=== PATIENT | female | born 1955 | race Caucasian/White ===

== ENCOUNTER → 2018-07-08 11:19 | Outpatient (CLI) | payer MEDICARE, SELFPAY ==
--- NOTE | 2018-07-08 | DI.CT.S_ITS ---
PROCEDURE: CT CERVICAL SPINE WO CON INDICATIONS: PAIN TECHNIQUE: Noncontrast 3 mm thick sections acquired from the skull base to the T4 level. Sagittal and coronal reformats were then constructed. For radiation dose reduction, the following was used: automated exposure control, adjustment of mA and/or kV according to patient size. COMPARISON: Outside Facility, RG, CT FULL SPINE, 04/26/2018, 23:38. [facility], CT, CT HEAD/BRAIN WO CON, 07/08/2018, 11:25. Outside Facility, RG, XR C-SPINE 4-6V, 04/29/2018, 14:52. [facility], RG, XR C-SPINE 2-3V, 06/24/2018, 12:37. FINDINGS: Image quality: Excellent. Bones: There is a fracture seen of the right arch and the C1 vertebral body, with a gap of up to 1 cm involving the right anterior arch, with downward displacement of the skull base into the fracture cleft, as on series 10 image 39. The posterior arch fracture on the right demonstrates partially bridging bony callus and displacement of 1-2 mm, as on series 6 image 22. No new fractures are seen. No suspicious lytic or blastic lesions are seen. Age-appropriate bony degenerative changes are seen. Soft tissues: Prevertebral soft tissues are normal in thickness. No paravertebral hematomas. No apical pneumothoraces. IMPRESSION: There are fractures of the C1 arch on the right. The fracture involving the anterior right arch is more displaced on the current study than on the prior, with a gap of up to 1 cm. The skull base and invaginates down into the fracture cleft, splaying the fracture fragments. The fracture of the right posterior arch of C1 is slightly more displaced on the current study than on the prior, yet demonstrates partial bony bridging. Dictated by: Basil Rodrigues M.D. on 07/08/2018 at 14:00 Approved by: Basil Rodrigues M.D. on 07/08/2018 at 14:06
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
== END ==
PROVIDERS: Visit Provider Neurological Surgery
DX: S06.5X0D Traumatic subdural hemorrhage without loss of consciousness, subsequent encounter (principal); S12.000D Unspecified displaced fracture of first cervical vertebra, subsequent encounter for fracture with routine healing; M54.2 Cervicalgia
CPT/HCPCS: 70450; 72125

== ENCOUNTER → 2018-08-02 10:16 | Outpatient (CLI) | payer MEDICARE, SELFPAY ==
--- NOTE | 2018-08-02 | DI.CT.S_ITS ---
PROCEDURE: CT CERVICAL SPINE WO CON INDICATIONS: Unspecified displaced fracture of first cervical TECHNIQUE: Noncontrast 3 mm thick sections acquired from the skull base to the T4 level. Sagittal and coronal reformats were then constructed. For radiation dose reduction, the following was used: automated exposure control, adjustment of mA and/or kV according to patient size. COMPARISON: [facility], RG, XR C-SPINE 2-3V, 06/24/2018, 12:37. Outside Facility, RG, XR C-SPINE 4-6V, 04/29/2018, 14:52. Outside Facility, RG, CT FULL SPINE, 04/26/2018, 23:38. [facility], CT, CT HEAD/BRAIN WO CON, 08/02/2018, 11:00. [facility], CT, CT CERVICAL SPINE WO CON, 07/08/2018, 11:25. FINDINGS: Image quality: Excellent. Bones: Fractures are seen of the right aspect of the C1 arch. Along the fracture the posterior arch, there is minimal interval remodeling change, with slight progression of bony bridging. There is a moderately displaced fracture of the right aspect of the C1 arch, which is not significantly changed compared to the prior examination. The right skull base is seen descending into the fracture line itself, splaying the fracture fragments, which is a stable observation. No additional fractures are seen. Degenerative changes are seen throughout, which are most prominent at the C6-C7 level. Soft tissues: Prevertebral soft tissues are normal in thickness. No paravertebral hematomas. No apical pneumothoraces. IMPRESSION: 2 sites of right C1 arch fracture are seen. There is moderate displacement seen of the anterior fracture, with a portion of the right skull base descending into the fracture line, without healing changes seen. There is minimal progression of healing of the fracture of the posterior C1 arch. Dictated by: Basil Rodrigues M.D. on 08/02/2018 at 10:31 Approved by: Basil Rodrigues M.D. on 08/02/2018 at 10:36
--- NOTE | 2018-08-02 | DI.CT.S_ITS ---
PROCEDURE: CT HEAD/BRAIN WO CON INDICATIONS: Unspecified displaced fracture of first cervical TECHNIQUE: Noncontrast 4.5 mm thick angled axial sections acquired from the foramen magnum to the vertex, with coronal and sagittal reformats. For radiation dose reduction, the following was used: automated exposure control, adjustment of mA and/or kV according to patient size. COMPARISON: Outside Facility, RG, CT HEAD / NECK ANGIO, 04/26/2018, 23:38. Outside Facility, RG, CT HEAD W/O CONTRAST, 04/27/2018, 4:42. [facility], CT, CT CERVICAL SPINE WO CON, 08/02/2018, 11:00. [facility], CT, CT CERVICAL SPINE WO CON, 07/08/2018, 11:25. [facility], CT, CT HEAD/BRAIN WO CON, 07/08/2018, 11:25. FINDINGS: Image quality: Excellent. CSF spaces: Basal cisterns are patent. No extra-axial fluid collections. The ventricles are symmetric in size and shape. Brain: No intracranial bleeds or masses. There is cerebral volume loss for age, with resultant ventricular and sulcal prominence. There are periventricular and deep white matter chronic small vessel ischemic changes. There is intracranial internal carotid artery atherosclerosis. Skull and face: Calvarium and visualized facial bones appear intact, without suspicious lesions. There is partial visualization of the patient's known anterior C1 arch fracture. Sinuses: Visualized sinuses and mastoids are clear. IMPRESSION: Unremarkable intracranial study. Partial visualization of the patient's known right anterior C1 arch fracture. Dictated by: Basil Rodrigues M.D. on 08/02/2018 at 10:36 Approved by: Basil Rodrigues M.D. on 08/02/2018 at 10:38
== END ==
PROVIDERS: PCP Family Medicine; Visit Provider Neurological Surgery
DX: S12.03 Posterior arch fracture of first cervical vertebra (principal)
CPT/HCPCS: 70450; 72125

== ENCOUNTER 2018-10-03 10:41 | Outpatient (RCR) | payer MEDICARE, SELFPAY ==
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
== END 2018-10-31 10:52 | disposition home or self-care (01) ==
LOC: SP 10:41
PROVIDERS: PCP Family Medicine; Visit Provider Family Medicine
DX: R47.9 Unspecified speech disturbances (principal)
CPT/HCPCS: 96125